=== PATIENT | male | born 1990 | race Caucasian/White ===

== ENCOUNTER 2025-05-24 11:56 | Emergency (ER) | payer BC, SELFPAY ==
[2025-05-24 11:57] VITALS: BP 146/103
--- NOTE | 2025-05-24 12:26 | ED.GENMED ---
History of Present Illness
General
Chief Complaint: Abdominal Symptoms
Source: patient
Time Seen by Provider: 05/24/25 12:13
History of Present Illness
History of Present Illness:
34-year-old male presenting to the emergency department for evaluation after he awoke this morning with a headache, proceeded to have a wave of nausea and then had some episodes of retching followed by some emesis which she states had a couple small
flecks of blood within the vomitus concerning him to come to the ER. Patient states presently feels much better, denies any history of similar. Patient denies any alcohol history, frequent NSAID use, black stools or dark stools, current abdominal
pain or any other concerns. Patient does not use anticoagulant medication. Family history was noted for mother having celiac disease. Social history was otherwise noncontributory. Patient does state he uses a vape very intermittently.
Past History
Past History
ED Past Medical History: Psychiatric
ED Past Surgical History: None
Social History
Tobacco: Vaping
Alcohol: None
Drug: None
Personal: Single
Living: with family
Review of Systems
Review of Systems
All Other Systems: ROS reviewed and negative except as documented in HPI and ROS
Phy Exam
Physical Exam
Physical Exam:
GENERAL: Alert , in no apparent distress
EYE: clear conjunctiva b/l
HEAD: NCAT
ENT: o/p clr, mmm.
CARDIAC: Regular rate and rhythm .
LUNGS: Clear breath sounds bilaterally, no acute respiratory distress, no wheezes/rales/rhonchi
ABDOMEN: Soft, without focal tenderness, no r/g, no cvat
NEUROLOGICAL: Alert and oriented
SKIN: Warm and dry, skin intact.
MUSCULOSKELETAL: well perfused.
PSYCH: Normal and appropriate interaction.
Scores
Heart Failure Risk
Heart Failure Risk Score: Not Applicable
Heart Score for Chest Pain Patients
STEMI patient?: Not applicable
Withdrawal Assessment of Alcohol
Withdrawal Assessment Completed?: Not applicable
Course
Orders/Labs/Results
Orders:
Orders
05/24/25 12:40
Complete Blood Count/With Diff Urgent
Comprehensive Metabolic Panel Urgent
Lipase Urgent
Abnormal Lab Results
05/24/25
12:40
Abs Immat Gran (auto) 0.1 H 10^3/uL
(0-0.05)
Immature Gran % 1.2 H %
(0-0.5)
Lymphocytes % 18.7 L %
(20.5-51.1)
Chloride 109 H mmol/L
(98-107)
ALT 70 H U/L
(0-50)
05/24/25 12:40
05/24/25 12:40
Vital Signs
Initial and Last Documented VS:
Initial Vital Signs
Temp Pulse Resp BP Pulse Ox
98.1 F 96 16 146/103 98
05/24/25 11:57 05/24/25 11:57 05/24/25 11:57 05/24/25 11:57 05/24/25 11:57
Last Documented Vital Signs
Temp Pulse Resp BP Pulse Ox
98.1 F 96 16 146/103 98
05/24/25 11:57 05/24/25 11:57 05/24/25 11:57 05/24/25 11:57 05/24/25 12:27
MDM/Problems Addressed
Differential Diagnosis Includes:
GERD
Gastritis
PUD
Kayley-Sloan tear
Variceal bleed
Boerhaves
Anemia
MDM/Problems Addressed:
34-year-old male presenting to the ER for further evaluation after he had 1 episode of small flecks of blood intermixed with a little bit of vomitus earlier today, currently reports feeling much better and without any pain. Patient has no
significant risk factors for upper GI bleeding or lower GI bleeding. He denies use of anticoagulants and is otherwise hemodynamically stable. Will check labs and continue to monitor.
*Pulse Oximetry
SaO2: 98
Oxygen Mode of Delivery: Room air
Patient hypoxic: no
*Critical Care Note
Total Time (30-74mins, 75-104mins- exclusive of procedures): Not Applicable
Patient Management
Escalation/DeEscalation of care consider admission/obs:
Patient's labs are within normal limits. He continues to be symptom-free. Discussed bland diet. Can take [id number] Pepcid or omeprazole as needed. Return precautions discussed. Stable for discharge home.
ED Attending Note
-
Portions of this chart may have been created with voice recognition software.� Occasional wrong word or��sound alike� substitutions may have occurred due to the inherent limitations of voice recognition software.
Discharge Plan
Departure
Patient Disposition: Home (Routine Discharge)
Date of Disposition: 05/24/25
Time of Disposition: 13:36
Patient with high blood pressure during this ER visit?: Yes
Discharge Problem:
Nausea and vomiting
Instructions: Nausea and Vomiting, Adult (DC)
Referrals:
PRIVATE,PHYSICIAN [Family Provider, Internal Medicine]
Stand Alone Forms: Return to Work
Interventions
Interventions:
*Risk Screen - Suicide Last Done: 05/24/25 11:57
*Neglect/Abuse Screening Last Done: 05/24/25 12:00
*Nursing Disposition Last Done: 05/24/25 14:15
ME-Mqsrim-Nmgeepegob Assessment Last Done: 05/24/25 13:30
Discharge Date and Time
Discharge Date/Time: 05/24/25 14:15
Print Language: MEXICAN
[2025-05-24 12:51] LABS: Hematocrit 42.9 % (39.0-52.0); Hemoglobin 14.6 g/dL (13.0-18.0); Mean Corp Hgb Conc. 34.0 g/dL (33.0-37.0); Mean Corpuscular Volume 88.1 fL (80.0-94.0); Nucleated Red Blood Cells % 0 % (-); Platelet Count 211 10^3/uL (130-400); Red Cell Dist. Width 12.6 % (11.5-14.5)
[2025-05-24 13:05] LABS: ALT (SGPT) 70 U/L (0-50); AST (SGOT) 37 U/L (17-59); Albumin 4.7 g/dl (3.5-5.0); Alkaline Phosphatase 56 U/L (38-126); Blood Urea Nitrogen 20 mg/dl (9-20); Calcium 9.4 mg/dl (8.4-10.2); Carbon Dioxide 22 mmol/L (22-30); Chloride 109 mmol/L (98-107); Glucose 95 mg/dl (70-99); Lipase 72 U/L (23-300); Potassium 4.3 mmol/L (3.5-5.1); Sodium 139 mmol/L (135-145); Total Protein 7.3 g/dl (6.3-8.2); eGFR > 60.00
== END 2025-05-24 14:15 | disposition home or self-care (01) ==
LOC: EMR 11:56
PROVIDERS: Physician Assistant Medical; EMERGENCY PHYSICIAN Emergency Medicine
DX: R11.2 Nausea with vomiting, unspecified (principal); R51.9 Headache, unspecified; F17.290 Nicotine dependence, other tobacco product, uncomplicated
CPT/HCPCS: 99283; 80053; 83690; 85025